=== PATIENT | male | born 1985 | race Caucasian/White ===

== ENCOUNTER 2018-07-15 20:08 | Emergency (ER) | payer MEDICAID ==
[~2018-07-15] VITALS: Ht 180.3 cm; Wt 90.7 kg
[2018-07-15 20:15] VITALS: BP_SYST 155
[2018-07-15] MEDS ORDERED: HYDROcodone/ACETAMIN 5-325 MG TAB (NORCO/ VICODIN) PO ONE (20:45)
[2018-07-15 22:21] VITALS: BP_SYST 136
== END 2018-07-15 22:09 | disposition home or self-care (01) ==
LOC: SED 20:08
DX: S83.91XA Sprain of unspecified site of right knee, initial encounter (principal); F17.200 Nicotine dependence, unspecified, uncomplicated; R03.0 Elevated blood-pressure reading, without diagnosis of hypertension; Z71.6 Tobacco abuse counseling; W19.XXXA Unspecified fall, initial encounter; Y93.89 Activity, other specified; Y92.89 Other specified places as the place of occurrence of the external cause; Y99.8 Other external cause status
CPT/HCPCS: 73564; 99283

== ENCOUNTER 2019-02-10 10:41 | Emergency (ER) | payer MEDICAID ==
[~2019-02-10] VITALS: Ht 180.3 cm; Wt 90.7 kg
[2019-02-10 10:41] VITALS: BP_SYST 124
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
--- NOTE | 2019-02-10 10:58 | NUR ---
DR BAXTER EVALUATING PT IN [facility] CHAIR
[2019-02-10] MEDS ORDERED: MIRTAZAPINE 15 MG TABLET PO ONE (11:00)
[2019-02-10] MEDS ORDERED: ARIPiprazole 5 MG TAB PO ONE (11:00)
[2019-02-10 11:40] VITALS: BP_SYST 141
--- NOTE | 2019-02-10 11:41 | NUR ---
Patient given written and verbal discharge instructions and verbalizes understanding. ER MD discussed with patient the results and treatment provided. Patient in stable condition. ID arm band removed. Rx of NONE given. Patient educated on pain management and to follow up with PMD. Pain Scale 0/10. Opportunity for questions provided and answered. Medication side effect fact sheet provided.
== END 2019-02-10 11:41 ==
LOC: SED 10:41
DX: F10.10 Alcohol abuse, uncomplicated (principal); Z02.89 Encounter for other administrative examinations; F20.9 Schizophrenia, unspecified; F17.210 Nicotine dependence, cigarettes, uncomplicated; Y90.9 Presence of alcohol in blood, level not specified
CPT/HCPCS: 99283

== ENCOUNTER 2019-10-15 20:21 | Emergency (ER) | payer MEDICAID ==
[~2019-10-15] VITALS: Ht 180.3 cm; Wt 90.7 kg
[2019-10-15 20:30] VITALS: BP_SYST 137
[2019-10-16] MEDS ORDERED: HYDROcodone/ACETAMIN 7.5-325 MG TAB PO ONE (00:45)
[2019-10-16 01:36] VITALS: BP_SYST 136
== END 2019-10-16 01:34 | disposition home or self-care (01) ==
LOC: SED 20:21
DX: S83.8X1A Sprain of other specified parts of right knee, initial encounter (principal); F17.200 Nicotine dependence, unspecified, uncomplicated; F12.90 Cannabis use, unspecified, uncomplicated; X50.1XXA Overexertion from prolonged static or awkward postures, initial encounter; Y93.89 Activity, other specified; Y92.89 Other specified places as the place of occurrence of the external cause; Y99.8 Other external cause status
CPT/HCPCS: 73564; 99283

== ENCOUNTER 2023-10-05 10:30 | Emergency (ER) | payer MEDICAID ==
[~2023-10-05] VITALS: Ht 180.3 cm; Wt 90.7 kg
[2023-10-05 10:57] VITALS: BP_SYST 146; PULSE 88; RESP 17; TEMP 97.2; O2SAT 95
[2023-10-05] MEDS ORDERED: BACITRACIN 1 GM OINT TP ONE (11:22)
[2023-10-05] MEDS: IBUPROFEN 600 MG TABLET PO ONE (11:29)
[2023-10-05 11:34] VITALS: BP_SYST 146; PULSE 88; RESP 17; TEMP 97.2; O2SAT 95
== END 2023-10-05 11:36 | disposition home or self-care (01) ==
LOC: SED 10:30
DX: S01.81XA Laceration without foreign body of other part of head, initial encounter (principal); V18.0XXA Pedal cycle driver injured in noncollision transport accident in nontraffic accident, initial encounter; Y93.89 Activity, other specified; Y92.89 Other specified places as the place of occurrence of the external cause; Y99.8 Other external cause status
CPT/HCPCS: 99282